=== PATIENT | male | born 1990 | race Two or more races ===

== ENCOUNTER 2018-07-05 00:41 | Emergency (ER) | payer SELFPAY ==
[~2018-07-05] VITALS: Ht 188 cm; Wt 90.7 kg
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
--- NOTE | 2018-07-05 00:57 | NUR ---
PT TRANSPORTED TO RADIOLOGY FOR CT HEAD.
[2018-07-05] MEDS ORDERED: HYDROCODONE/APAP 5/325MG 1 EACH TABLET PO ONE (01:30)
[2018-07-05] MEDS ORDERED: AMOX/CLAVULANATE 875 MG TABLET PO ONE (01:30)
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
[2018-07-05] MEDS ORDERED: AMOX/CLAVULANATE 875 MG TABLET ONE (05:09)
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
[2018-07-05 06:17] VITALS: BP 124/61
== END 2018-07-05 06:18 | disposition home or self-care (01) ==
LOC: ER 00:44
DX: S02.2XXA Fracture of nasal bones, initial encounter for closed fracture (principal); F10.129 Alcohol abuse with intoxication, unspecified; F17.200 Nicotine dependence, unspecified, uncomplicated; Y04.0XXA Assault by unarmed brawl or fight, initial encounter; Y93.89 Activity, other specified; Y92.89 Other specified places as the place of occurrence of the external cause; Y99.8 Other external cause status; Y90.9 Presence of alcohol in blood, level not specified
CPT/HCPCS: 70486-TC; A4606; Z7610